=== PATIENT | female | born 1995 | race Caucasian/White ===

== ENCOUNTER 2017-07-19 02:44 | Inpatient (IN) | payer MEDICAID ==
[~2017-07-19] VITALS: Ht 160 cm; Wt 45.5 kg
[2017-07-19] MEDS ORDERED: HALOPERIDOL LACTATE 5 MG/ML VIAL IM ONE (03:15)
[2017-07-19] MEDS ORDERED: LORazepam 2 MG/ML VIAL IM ONE (03:15)
[2017-07-19] MEDS ORDERED: DiphenhydrAMINE HCL 50 MG/ML VIAL IM ONE (03:15)
[2017-07-19] MEDS ORDERED: HALOPERIDOL 5 MG TABLET PO PRN (04:45)
[2017-07-19] MEDS ORDERED: ZOLPIDEM TARTRATE 10 MG TABLET PO PRN (04:45)
[2017-07-19 05:21] LABS: EOSINOPHILS % (AUTO) 0 % (1.0-6.0); HEMATOCRIT 40.5 % (36-46); HEMOGLOBIN 14.1 g/dL (12.0-16.0); LYMPHOCYTES # (AUTO) 1.1 K/uL (1.0-4.8); LYMPHOCYTES % (AUTO) 11.5 % (22.0-44.0); MEAN CORPUSCULAR HEMOGLOBIN 34.8 pg (26.0-34.0); MEAN CORPUSCULAR HGB CONC 34.7 G/dL (31.0-37.0); MEAN CORPUSCULAR VOLUME 100 fL (80-100); MONOCYTES # (AUTO) 0.8 K/uL (0.1-1.0); MONOCYTES % (AUTO) 8.4 % (2.0-9.0); NEUTROPHILS # (AUTO) 7.4 K/uL (1.8-7.7); NEUTROPHILS % (AUTO) 80.1 % (40.0-70.0); PLATELET COUNT (AUTO) 236 K/uL (150-450); RED BLOOD CELL COUNT(AUTO) 4.05 MIL/uL (4.00-5.20); RED CELL DISTRIBUTION WIDTH 13.5 % (11.5-14.5); WHITE BLOOD COUNT (AUTO) 9.2 K/uL (4.5-11.0)
[2017-07-19 05:31] LABS: ANION GAP 9 mmol/L (8-16); CALCIUM, TOTAL 9.2 mg/dL (8.8-10.5); CARBON DIOXIDE 26 mmol/L (22-29); CHLORIDE 105 mmol/L (98-107); CREATININE 0.94 mg/dL (0.60-1.30); GLOMERULAR FILTR. RATE CALC > 60 mL/min (>60); SODIUM SERUM 140 mmol/L (136-145); UREA NITROGEN, BLOOD 9 mg/dL (7-18)
[2017-07-19 05:39] LABS: ALANINE AMINOTRANSFERASE 19 U/L (12-78); ALBUMIN 4.6 g/dL (3.4-5.0); ASPARTATE AMINOTRANSFERASE 17 U/L (15-37); BILIRUBIN,TOTAL 0.5 mg/dL (0.1-1.0); TOTAL PROTEIN, SERUM 7.7 g/dL (6.4-8.2)
[2017-07-19 06:11] LABS: APPEARANCE,URINE CLEAR (CLEAR); GLUCOSE, URINE (UA) NEGATIVE (NEGATIVE); KETONES,URINE NEGATIVE (NEGATIVE); LEUKOCYTE ESTERASE ,URINE NEGATIVE (NEGATIVE); OCCULT BLOOD,URINE TRACE (NEGATIVE); PROTEIN,URINE NEGATIVE (NEGATIVE)
[2017-07-19 06:12] LABS: ADD UA MICROSCOPIC YES
[2017-07-19 06:13] LABS: SQUAMOUS EPITHELIAL CELL,UR Rare /LPF (None Seen); WBC,URINE 0-2 /HPF (0-5)
[2017-07-19] MEDS ORDERED: INFLUENZA VIRUS VACCINE QVS 2017-18 (3YR+)/PF 60 MCG/0.5 ML SYRINGE IM ONE (07:00)
[2017-07-19] MEDS: RisperiDONE 1 MG TABLET PO SCH ×3 (09:00→17:00)
[2017-07-19] MEDS ORDERED: MAGNESIUM HYDROXIDE SUSPENSION 30 ML UDCUP PO PRN (09:15)
[2017-07-19] MEDS ORDERED: ALBUTEROL SULFATE HFA 90 MCG/PUFF 8 GM INHALER IH PRN (09:15)
[2017-07-19] MEDS ORDERED: BACITRACIN 28.4 GM OINTMENT TP PRN (09:15)
[2017-07-19] MEDS ORDERED: MAG HYDROX/AL HYDROX/SIMETH ES 30 ML SUSPENSION UDCUP PO PRN (09:15)
[2017-07-19] MEDS ORDERED: LOPERAMIDE HCL 2 MG CAPSULE PO PRN (09:15)
[2017-07-19] MEDS ORDERED: IBUPROFEN 600 MG TABLET PO PRN (09:15)
[2017-07-19] MEDS ORDERED: PETROLATUM,WHITE 71 GM JELLY TP PRN (09:15)
[2017-07-19] MEDS ORDERED: ONDANSETRON HCL 4 MG TABLET PO PRN (09:15)
[2017-07-19] MEDS ORDERED: CloNIDine HCL 0.1 MG TABLET PO PRN (09:15)
[2017-07-19] MEDS ORDERED: ACETAMINOPHEN 325 MG TABLET PO PRN (09:15)
[2017-07-19] MEDS ORDERED: BENZOCAINE/MENTHOL LOZENGE [8 LOZENGES/PACKET] MM PRN (09:30)
[2017-07-20 07:44] LABS: CHOL/HDL RATIO 2.8 (3.9-5.7)
[2017-07-20 09:04] VITALS: BP 152/92
[2017-07-20] MEDS: RisperiDONE 1 MG TABLET PO SCH ×2 (09:49→17:24)
[2017-07-21 02:34] VITALS: BP 109/89
[2017-07-21] MEDS: LORazepam 2 MG TABLET PO PRN ×2 (08:05→14:52)
[2017-07-21] MEDS: RisperiDONE 1 MG TABLET PO SCH ×2 (08:05→17:24)
[2017-07-21 08:19] VITALS: BP 125/55
[2017-07-22] MEDS: LORazepam 2 MG TABLET PO PRN (04:14)
[2017-07-22 04:27] VITALS: BP 130/69
[2017-07-22] MEDS: RisperiDONE 1 MG TABLET PO SCH (08:07)
[2017-07-22 08:18] VITALS: BP 114/65
[2017-07-22] MEDS ORDERED: RISP1 PO (11:11)
== END 2017-07-22 12:00 | disposition home or self-care (01) | DRG 885 ==
LOC: EMS 02:45 → 3EC 06:02
PROVIDERS: ADMIT Psychiatry & Neurology Child & Adolescent Psychiatry; ATTEND Psychiatry & Neurology Child & Adolescent Psychiatry
DX: F29 Unspecified psychosis not due to a substance or known physiological condition (principal); Z78.1 Physical restraint status; Z28.21 Immunization not carried out because of patient refusal; Z88.5 Allergy status to narcotic agent; Z79.899 Other long term (current) drug therapy; G47.00 Insomnia, unspecified; F12.90 Cannabis use, unspecified, uncomplicated; Z71.51 Drug abuse counseling and surveillance of drug abuser; F41.9 Anxiety disorder, unspecified; Z56.0 Unemployment, unspecified
CPT/HCPCS: 96372; 99285; G0480; J1200; J1630; J2060

== ENCOUNTER 2017-07-30 16:19 | Inpatient (IN) | payer MEDICAID ==
[~2017-07-30] VITALS: Ht 157.5 cm; Wt 49.5 kg
[~2017-07-30 16:19] MED LIST: RISP1 PO
[2017-07-30 16:48] LABS: BASOPHILS % (AUTO) 0.6 % (0.0-2.0); EOSINOPHILS % (AUTO) 0.8 % (1.0-6.0); HEMATOCRIT 41.2 % (36-46); HEMOGLOBIN 14.4 g/dL (12.0-16.0); LYMPHOCYTES # (AUTO) 1.6 K/uL (1.0-4.8); LYMPHOCYTES % (AUTO) 14.9 % (22.0-44.0); MEAN CORPUSCULAR HEMOGLOBIN 34.7 pg (26.0-34.0); MEAN CORPUSCULAR HGB CONC 34.9 G/dL (31.0-37.0); MEAN CORPUSCULAR VOLUME 99 fL (80-100); MONOCYTES # (AUTO) 0.8 K/uL (0.1-1.0); MONOCYTES % (AUTO) 7.1 % (2.0-9.0); NEUTROPHILS # (AUTO) 8.3 K/uL (1.8-7.7); NEUTROPHILS % (AUTO) 76.6 % (40.0-70.0); PLATELET COUNT (AUTO) 240 K/uL (150-450); RED BLOOD CELL COUNT(AUTO) 4.14 MIL/uL (4.00-5.20); WHITE BLOOD COUNT (AUTO) 10.9 K/uL (4.5-11.0)
[2017-07-30 16:58] LABS: ANION GAP 12 mmol/L (8-16); CALCIUM, TOTAL 9.6 mg/dL (8.8-10.5); CARBON DIOXIDE 24 mmol/L (22-29); CHLORIDE 99 mmol/L (98-107); CREATININE 0.87 mg/dL (0.60-1.30); GLOMERULAR FILTR. RATE CALC > 60 mL/min (>60); POTASSIUM 3.5 mmol/L (3.5-5.1); SODIUM SERUM 135 mmol/L (136-145); UREA NITROGEN, BLOOD 8 mg/dL (7-18)
[2017-07-30 17:04] LABS: ALANINE AMINOTRANSFERASE 23 U/L (12-78); ALBUMIN 4.7 g/dL (3.4-5.0); ASPARTATE AMINOTRANSFERASE 16 U/L (15-37); BILIRUBIN,TOTAL 0.4 mg/dL (0.1-1.0); TOTAL PROTEIN, SERUM 7.7 g/dL (6.4-8.2)
[2017-07-30] MEDS ORDERED: LORazepam 1 MG TABLET PO ONE (18:00)
[2017-07-30] MEDS ORDERED: LORazepam 2 MG TABLET PO ONE (18:00)
[2017-07-30] MEDS ORDERED: HALOPERIDOL 5 MG TABLET PO ONE (18:00)
[2017-07-30] MEDS ORDERED: INFLUENZA VIRUS VACCINE QVS 2017-18 (3YR+)/PF 60 MCG/0.5 ML SYRINGE IM ONE (20:30)
[2017-07-31] MEDS: HALOPERIDOL 5 MG TABLET PO PRN (12:28)
[2017-07-31] MEDS: LORazepam 2 MG TABLET PO PRN (12:29)
[2017-07-31] MEDS ORDERED: ACETAMINOPHEN 325 MG TABLET PO PRN (12:30)
[2017-07-31] MEDS ORDERED: CloNIDine HCL 0.1 MG TABLET PO PRN (12:30)
[2017-07-31] MEDS ORDERED: MAGNESIUM HYDROXIDE SUSPENSION 30 ML UDCUP PO PRN (12:30)
[2017-07-31] MEDS ORDERED: IBUPROFEN 600 MG TABLET PO PRN (12:30)
[2017-07-31] MEDS ORDERED: LOPERAMIDE HCL 2 MG CAPSULE PO PRN (12:30)
[2017-07-31] MEDS ORDERED: ONDANSETRON HCL 4 MG TABLET PO PRN (12:30)
[2017-07-31] MEDS ORDERED: BACITRACIN 28.4 GM OINTMENT TP PRN (12:30)
[2017-07-31] MEDS ORDERED: ALBUTEROL SULFATE HFA 90 MCG/PUFF 8 GM INHALER IH PRN (12:30)
[2017-07-31] MEDS ORDERED: BENZOCAINE/MENTHOL LOZENGE MM PRN (12:30)
[2017-07-31] MEDS ORDERED: MAG HYDROX/AL HYDROX/SIMETH ES 30 ML SUSPENSION UDCUP PO PRN (12:30)
[2017-07-31] MEDS ORDERED: PETROLATUM,WHITE 71 GM JELLY TP PRN (12:30)
[2017-07-31] MEDS: ARIPiprazole 10 MG TABLET PO SCH (14:25)
[2017-07-31 16:20] VITALS: BP 109/68
[2017-07-31] MEDS: ZOLPIDEM TARTRATE 10 MG TABLET PO PRN (20:26)
[2017-07-31] MEDS ORDERED: MIRTAZAPINE 15 MG TABLET PO SCH ×2 (21:00)
[2017-08-01 02:01] VITALS: BP 123/74
[2017-08-01] MEDS: HALOPERIDOL 5 MG TABLET PO PRN ×2 (05:54→17:27)
[2017-08-01] MEDS: LORazepam 2 MG TABLET PO PRN ×3 (05:54→17:27)
[2017-08-01] MEDS: ARIPiprazole 10 MG TABLET PO SCH (09:43)
[2017-08-01 11:01] VITALS: BP 111/52
[2017-08-01 16:13] VITALS: BP 114/66
[2017-08-01] MEDS ORDERED: MIRTAZAPINE 30 MG TABLET PO SCH (21:00)
[2017-08-01] MEDS: ZOLPIDEM TARTRATE 10 MG TABLET PO PRN (21:13)
[2017-08-02 06:25] VITALS: BP 100/61
[2017-08-02 08:02] LABS: HEMATOCRIT 40.7 % (36-46); HEMOGLOBIN 13.8 g/dL (12.0-16.0); MEAN CORPUSCULAR HEMOGLOBIN 34.1 pg (26.0-34.0); MEAN CORPUSCULAR VOLUME 101 fL (80-100); PLATELET COUNT (AUTO) 193 K/uL (150-450); RED BLOOD CELL COUNT(AUTO) 4.06 MIL/uL (4.00-5.20); RED CELL DISTRIBUTION WIDTH 12.6 % (11.5-14.5); WHITE BLOOD COUNT (AUTO) 6.4 K/uL (4.5-11.0)
[2017-08-02 08:54] LABS: ANION GAP 6 mmol/L (8-16); CALCIUM, TOTAL 8.8 mg/dL (8.8-10.5); CARBON DIOXIDE 29 mmol/L (22-29); CHLORIDE 106 mmol/L (98-107); CREATININE 0.94 mg/dL (0.60-1.30); GLOMERULAR FILTR. RATE CALC > 60 mL/min (>60); PHOSPHORUS 4.1 mg/dL (2.5-4.9); POTASSIUM 4.2 mmol/L (3.5-5.1); SODIUM SERUM 141 mmol/L (136-145); THYROID STIMULATING HORMONE 0.35 uIU/mL (0.36-3.74); UREA NITROGEN, BLOOD 13 mg/dL (7-18)
[2017-08-02] MEDS ORDERED: ARIPiprazole 15 MG TABLET PO SCH (09:00)
[2017-08-02 09:03] VITALS: BP 106/53
[2017-08-02 09:05] LABS: HEMOGLOBIN A1C 5.1 % (4.5-6.2)
[2017-08-02] MEDS: LORazepam 2 MG TABLET PO PRN ×2 (09:41→14:58)
[2017-08-02 09:47] LABS: BAND NEUTROPHILS % (MANUAL) 2 % (1-5); EOSINOPHILS % (MANUAL) 2 % (1-6); LYMPHOCYTES % (MANUAL) 47 % (22-44); RBC MORPHOLOGY COMMENT ABNORMAL RBC MORPH; TOTAL CELLS COUNTED 100
[2017-08-02] MEDS: HALOPERIDOL 5 MG TABLET PO PRN ×2 (10:32→14:58)
[2017-08-02 16:12] VITALS: BP 110/71
[2017-08-02] MEDS: MIRTAZAPINE 30 MG TABLET PO SCH (20:14)
[2017-08-02] MEDS: ZOLPIDEM TARTRATE 10 MG TABLET PO PRN (21:25)
[2017-08-03 05:48] VITALS: BP 112/91
[2017-08-03] MEDS: HALOPERIDOL 5 MG TABLET PO PRN ×2 (05:52→12:32)
[2017-08-03] MEDS: LORazepam 2 MG TABLET PO PRN ×2 (05:52→12:11)
[2017-08-03 08:23] VITALS: BP 133/85
[2017-08-03] MEDS: ARIPiprazole 10 MG TABLET PO SCH (08:48)
[2017-08-03 16:15] VITALS: BP 133/62
[2017-08-03] MEDS: MIRTAZAPINE 30 MG TABLET PO SCH (20:13)
[2017-08-03] MEDS: ZOLPIDEM TARTRATE 10 MG TABLET PO PRN (21:47)
[2017-08-04 05:26] VITALS: BP 116/70
[2017-08-04] MEDS: LORazepam 2 MG TABLET PO PRN ×2 (05:32→12:06)
[2017-08-04 08:12] VITALS: BP 95/62
[2017-08-04] MEDS: ARIPiprazole 10 MG TABLET PO SCH (09:41)
[2017-08-04] MEDS ORDERED: MIRT15 PO (13:06)
[2017-08-04] MEDS ORDERED: ARIP10TA8 PO (13:06)
== END 2017-08-04 15:00 | disposition home or self-care (01) | DRG 751 ==
LOC: EMS 16:20 → EEVIPCON 16:20 → B3A 18:49
PROVIDERS: ADMIT Psychiatry & Neurology Psychiatry; ATTEND Psychiatry & Neurology Psychiatry
DX: F33.3 Major depressive disorder, recurrent, severe with psychotic symptoms (principal); E87.1 Hypo-osmolality and hyponatremia; R45.851 Suicidal ideations; F41.9 Anxiety disorder, unspecified; F17.210 Nicotine dependence, cigarettes, uncomplicated; F12.90 Cannabis use, unspecified, uncomplicated; G47.00 Insomnia, unspecified; F60.3 Borderline personality disorder; R03.0 Elevated blood-pressure reading, without diagnosis of hypertension; Z59.0 Homelessness; Z79.899 Other long term (current) drug therapy; Z88.5 Allergy status to narcotic agent
CPT/HCPCS: 83036; 83735; 84100; 84436; 84439; 84443; 85007; 87081; 99285; 99406; G0480

== ENCOUNTER 2017-08-07 18:21 | Inpatient (IN) | payer MEDICAID ==
[~2017-08-07] VITALS: Ht 157.5 cm; Wt 48.1 kg
[~2017-08-07 18:21] MED LIST changes: +ARIP10TA8 PO; +MIRT15 PO; -RISP1 PO
[2017-08-07 19:31] VITALS: BP 130/64
[2017-08-07 20:13] VITALS: BP 105/62
[2017-08-07] MEDS: ZOLPIDEM TARTRATE 10 MG TABLET PO PRN (20:35)
[2017-08-07] MEDS ORDERED: INFLUENZA VIRUS VACCINE QVS 2017-18 (3YR+)/PF 60 MCG/0.5 ML SYRINGE IM ONE (20:45)
[2017-08-08 07:13] VITALS: BP 100/65
[2017-08-08 08:05] VITALS: BP 117/61
[2017-08-08] MEDS: HALOPERIDOL 5 MG TABLET PO PRN (08:26)
[2017-08-08] MEDS: LORazepam 1 MG TABLET PO PRN (08:26)
[2017-08-08] MEDS ORDERED: MAG HYDROX/AL HYDROX/SIMETH ES 30 ML SUSPENSION UDCUP PO PRN (08:30)
[2017-08-08] MEDS ORDERED: MAGNESIUM HYDROXIDE SUSPENSION 30 ML UDCUP PO PRN (08:30)
[2017-08-08] MEDS ORDERED: PETROLATUM,WHITE 71 GM JELLY TP PRN (08:30)
[2017-08-08] MEDS ORDERED: ACETAMINOPHEN 325 MG TABLET PO PRN (08:30)
[2017-08-08] MEDS ORDERED: ALBUTEROL SULFATE HFA 90 MCG/PUFF 8 GM INHALER IH PRN (08:30)
[2017-08-08] MEDS ORDERED: CloNIDine HCL 0.1 MG TABLET PO PRN (08:30)
[2017-08-08] MEDS ORDERED: LOPERAMIDE HCL 2 MG CAPSULE PO PRN (08:30)
[2017-08-08] MEDS ORDERED: ONDANSETRON HCL 4 MG TABLET PO PRN (08:30)
[2017-08-08] MEDS ORDERED: IBUPROFEN 600 MG TABLET PO PRN (08:30)
[2017-08-08] MEDS ORDERED: BACITRACIN 28.4 GM OINTMENT TP PRN (08:30)
[2017-08-08] MEDS ORDERED: BENZOCAINE/MENTHOL LOZENGE MM PRN (08:30)
[2017-08-08 08:32] LABS: ALANINE AMINOTRANSFERASE 25 U/L (12-78); ALBUMIN 4.4 g/dL (3.4-5.0); ALKALINE PHOSPHATASE 48 U/L (46-116); ANION GAP 8 mmol/L (8-16); ASPARTATE AMINOTRANSFERASE 14 U/L (15-37); BILIRUBIN,TOTAL 0.7 mg/dL (0.1-1.0); CALCIUM, TOTAL 9.1 mg/dL (8.8-10.5); CARBON DIOXIDE 27 mmol/L (22-29); CHLORIDE 104 mmol/L (98-107); CREATININE 0.93 mg/dL (0.60-1.30); GLOMERULAR FILTR. RATE CALC > 60 mL/min (>60); GLUCOSE,RANDOM 84 mg/dL (70-110); POTASSIUM 3.5 mmol/L (3.5-5.1); SODIUM SERUM 139 mmol/L (136-145); TOTAL PROTEIN, SERUM 7.6 g/dL (6.4-8.2); UREA NITROGEN, BLOOD 12 mg/dL (7-18)
[2017-08-08 08:39] LABS: BASOPHILS # (AUTO) 0.01 K/uL (0.00-0.20); BASOPHILS % (AUTO) 0.1 % (0.0-2.0); EOSINOPHILS # (AUTO) 0.17 K/uL (0.00-0.70); EOSINOPHILS % (AUTO) 1.06 % (1.0-6.0); HEMATOCRIT 44.8 % (36-46); HEMOGLOBIN 15.3 g/dL (12.0-16.0); LYMPHOCYTES # (AUTO) 1.8 K/uL (1.0-4.8); MEAN CORPUSCULAR HEMOGLOBIN 34.1 pg (26.0-34.0); MEAN CORPUSCULAR VOLUME 100 fL (80-100); MONOCYTES # (AUTO) 0.9 K/uL (0.1-1.0); MONOCYTES % (AUTO) 5.7 % (2.0-9.0); NEUTROPHILS # (AUTO) 13.3 K/uL (1.8-7.7); NEUTROPHILS % (AUTO) 82.2 % (40.0-70.0); PLATELET COUNT (AUTO) 220 K/uL (150-450); RED BLOOD CELL COUNT(AUTO) 4.47 MIL/uL (4.00-5.20); RED CELL DISTRIBUTION WIDTH 12.7 % (11.5-14.5)
[2017-08-08] MEDS: DOCUSATE SODIUM 100 MG CAPSULE PO SCH (08:54)
[2017-08-08] MEDS: OMEPRAZOLE 20 MG CAPSULE PO SCH (08:54)
[2017-08-08 16:00] VITALS: BP 108/66
[2017-08-09 02:31] VITALS: BP 110/66
[2017-08-09] MEDS: OMEPRAZOLE 20 MG CAPSULE PO SCH (08:07)
[2017-08-09] MEDS: DOCUSATE SODIUM 100 MG CAPSULE PO SCH (08:07)
[2017-08-09] MEDS: ARIPiprazole 10 MG TABLET PO SCH (08:07)
[2017-08-09] MEDS: LORazepam 1 MG TABLET PO PRN (08:10)
[2017-08-09 08:35] LABS: BASOPHILS % (AUTO) 0.4 % (0.0-2.0); EOSINOPHILS % (AUTO) 1.9 % (1.0-6.0); HEMATOCRIT 39.4 % (36-46); HEMOGLOBIN 13.8 g/dL (12.0-16.0); LYMPHOCYTES # (AUTO) 2.6 K/uL (1.0-4.8); LYMPHOCYTES % (AUTO) 34.3 % (22.0-44.0); MEAN CORPUSCULAR HGB CONC 34.9 G/dL (31.0-37.0); MEAN CORPUSCULAR VOLUME 100 fL (80-100); MONOCYTES # (AUTO) 0.7 K/uL (0.1-1.0); MONOCYTES % (AUTO) 8.6 % (2.0-9.0); NEUTROPHILS # (AUTO) 4.2 K/uL (1.8-7.7); NEUTROPHILS % (AUTO) 54.8 % (40.0-70.0); PLATELET COUNT (AUTO) 209 K/uL (150-450); RED BLOOD CELL COUNT(AUTO) 3.93 MIL/uL (4.00-5.20); RED CELL DISTRIBUTION WIDTH 12.6 % (11.5-14.5)
[2017-08-09 09:01] LABS: HEMOGLOBIN A1C 4.8 % (4.5-6.2)
[2017-08-09 09:11] LABS: FREE T4 (FREE THYROXINE) 0.98 ng/dL (0.76-1.46); THYROID STIMULATING HORMONE 0.29 uIU/mL (0.36-3.74)
[2017-08-09 09:27] VITALS: BP 127/89
[2017-08-09 09:34] LABS: AMPHET/METH SCREEN,URINE NEGATIVE (NEGATIVE); BARBITURATE SCREEN, URINE NEGATIVE (NEGATIVE); BENZODIAZEPINES SCREEN,URINE NEGATIVE (NEGATIVE); CANNABINOID SCREEN,URINE POSITIVE (NEGATIVE); COCAINE SCREEN,URINE NEGATIVE (NEGATIVE); METHADONE SCREEN, URINE NEGATIVE (NEGATIVE); OPIATE SCREEN,URINE NEGATIVE (NEGATIVE)
[2017-08-09 09:37] LABS: PHENCYCLIDINE SCREEN,URINE NEGATIVE (NEGATIVE)
[2017-08-09 09:50] LABS: APPEARANCE,URINE TURBID (CLEAR); BILIRUBIN,URINE NEGATIVE (NEGATIVE); GLUCOSE, URINE (UA) NEGATIVE (NEGATIVE); KETONES,URINE TRACE mg/dL (NEGATIVE); LEUKOCYTE ESTERASE ,URINE SMALL (NEGATIVE); NITRATE,URINE NEGATIVE (NEGATIVE); OCCULT BLOOD,URINE NEGATIVE (NEGATIVE); PROTEIN,URINE NEGATIVE (NEGATIVE); UROBILINOGEN,URINE 0.2 mg/dL (<=1.0)
[2017-08-09 09:56] LABS: HCG,QUAL RESULT NEGATIVE (NEGATIVE)
[2017-08-09 10:27] LABS: BACTERIA,URINE Few /HPF (None Seen); SQUAMOUS EPITHELIAL CELL,UR Few /LPF (None Seen)
[2017-08-09 10:28] LABS: AMORPHOUS SEDIMENT,UR Moderate /LPF (None Seen)
[2017-08-09 16:08] VITALS: BP 98/66
[2017-08-09] MEDS: MIRTAZAPINE 15 MG TABLET PO SCH (20:14)
[2017-08-10] MEDS: ZOLPIDEM TARTRATE 10 MG TABLET PO PRN ×2 (02:53→21:21)
[2017-08-10 03:04] VITALS: BP 133/82
[2017-08-10] MEDS: DOCUSATE SODIUM 100 MG CAPSULE PO SCH (08:24)
[2017-08-10] MEDS: ARIPiprazole 10 MG TABLET PO SCH (08:24)
[2017-08-10] MEDS: OMEPRAZOLE 20 MG CAPSULE PO SCH (08:24)
[2017-08-10] MEDS: LORazepam 1 MG TABLET PO PRN ×2 (08:27→16:48)
[2017-08-10 09:57] VITALS: BP 129/88
[2017-08-10] MEDS: HALOPERIDOL 5 MG TABLET PO PRN (10:54)
[2017-08-10 16:08] VITALS: BP 108/60
[2017-08-10] MEDS: MIRTAZAPINE 15 MG TABLET PO SCH (20:35)
[2017-08-11 07:19] VITALS: BP 138/79
[2017-08-11] MEDS: ARIPiprazole 10 MG TABLET PO SCH (08:03)
[2017-08-11] MEDS: OMEPRAZOLE 20 MG CAPSULE PO SCH (08:03)
[2017-08-11] MEDS: DOCUSATE SODIUM 100 MG CAPSULE PO SCH (08:03)
[2017-08-11 08:07] VITALS: BP 124/90
[2017-08-11] MEDS ORDERED: ARIPiprazole LAUROXIL ER SUSPENSION 882 MG/3.2 ML SYRINGE IM SCH (09:00)
[2017-08-11] MEDS: LORazepam 1 MG TABLET PO PRN (10:43)
[2017-08-11] MEDS: HALOPERIDOL 5 MG TABLET PO PRN (10:43)
[2017-08-11 16:17] VITALS: BP 125/70
[2017-08-11] MEDS: ZOLPIDEM TARTRATE 10 MG TABLET PO PRN (20:07)
[2017-08-11] MEDS: MIRTAZAPINE 15 MG TABLET PO SCH (20:07)
[2017-08-11] MEDS: NITROFURANTOIN/NITROFURAN MAC 100 MG CAPSULE [MACROBID] PO SCH (21:14)
[2017-08-12 06:56] VITALS: BP 128/75
[2017-08-12] MEDS: DOCUSATE SODIUM 100 MG CAPSULE PO SCH (08:12)
[2017-08-12] MEDS: NITROFURANTOIN/NITROFURAN MAC 100 MG CAPSULE [MACROBID] PO SCH (08:12)
[2017-08-12] MEDS: LORazepam 1 MG TABLET PO PRN (08:12)
[2017-08-12] MEDS: OMEPRAZOLE 20 MG CAPSULE PO SCH (08:12)
[2017-08-12 08:49] VITALS: BP 136/104
[2017-08-12] MEDS ORDERED: ARIPiprazole 10 MG TABLET PO SCH (09:00)
[2017-08-12] MEDS ORDERED: OMEP20 PO (10:15)
[2017-08-12] MEDS ORDERED: DSS100 PO (10:15)
[2017-08-12] MEDS ORDERED: MACR100 PO (10:15)
== END 2017-08-12 10:20 | disposition home or self-care (01) | DRG 750 ==
LOC: B3A 19:38 → EDSTATUS 19:42 → B3A 08-11 16:09
PROVIDERS: ADMIT Psychiatry & Neurology Psychiatry; ATTEND Psychiatry & Neurology Psychiatry
DX: F25.9 Schizoaffective disorder, unspecified (principal); R45.851 Suicidal ideations; Z59.0 Homelessness; F41.9 Anxiety disorder, unspecified; G47.00 Insomnia, unspecified; N39.0 Urinary tract infection, site not specified; F12.90 Cannabis use, unspecified, uncomplicated; Z79.899 Other long term (current) drug therapy; Z88.5 Allergy status to narcotic agent
CPT/HCPCS: 82306; 83036; 84439; 84443; 87081; 99285